=== PATIENT | female | born 1940 | race Caucasian/White ===

== ENCOUNTER → 2021-03-28 | Outpatient (CLI) | payer OTHER, BC ==
[~2021-03-28] VITALS: Ht 157.5 cm; Wt 45.4 kg
[~2021-03-28] MED LIST: ELIQUIS5 MG PO; PROAIR HFA8.5 GM INH; TRELEGY ELLIPT1 EACH INH
== END | disposition home or self-care (01) ==
LOC: GI 08:52 → EDSTATUS 12:11 → GI 13:55
PROVIDERS: ATTEND Internal Medicine Gastroenterology
DX: R63.4 Abnormal weight loss (principal); R11.2 Nausea with vomiting, unspecified; K31.89 Other diseases of stomach and duodenum; I48.91 Unspecified atrial fibrillation; J43.9 Emphysema, unspecified; E78.00 Pure hypercholesterolemia, unspecified; I73.9 Peripheral vascular disease, unspecified; M19.90 Unspecified osteoarthritis, unspecified site; Z86.73 Personal history of transient ischemic attack (TIA), and cerebral infarction without residual deficits; G62.9 Polyneuropathy, unspecified; Z86.010 Personal history of colon polyps; Z98.890 Other specified postprocedural states; Z79.899 Other long term (current) drug therapy; Z85.3 Personal history of malignant neoplasm of breast; Z90.710 Acquired absence of both cervix and uterus; Z86.16 Personal history of COVID-19; Z79.01 Long term (current) use of anticoagulants; Z87.891 Personal history of nicotine dependence
CPT/HCPCS: 62110; 62900